=== PATIENT | female | born 1950 ===

== ENCOUNTER 2023-06-15 10:16 | Outpatient (CLI) | payer OTHER | END 2023-06-15 10:28 | disposition home or self-care (01) | LOC: RAD 10:16 | PROVIDERS: ATTEND Orthopaedic Surgery | DX: S60.211A Contusion of right wrist, initial encounter (principal) ==

== ENCOUNTER 2023-06-15 11:15 | Outpatient (CLI) | payer OTHER | END 2023-06-15 11:16 | disposition home or self-care (01) | LOC: LAB 11:15 | PROVIDERS: ATTEND Orthopaedic Surgery | DX: Z22.322 Carrier or suspected carrier of Methicillin resistant Staphylococcus aureus (principal) ==

== ENCOUNTER 2023-06-25 08:22 | Outpatient (CLI) | payer OTHER | END 2023-06-25 08:32 | disposition home or self-care (01) | LOC: RAD 08:22 | PROVIDERS: ATTEND Orthopaedic Surgery | DX: S52.572D Other intraarticular fracture of lower end of left radius, subsequent encounter for closed fracture with routine healing (principal) ==

== ENCOUNTER 2023-08-13 08:11 | Outpatient (CLI) | payer OTHER ==
[2023-08-13 09:53] LABS: BILIRUBIN TOTAL 0.64 mg/dL (0.3-1.2); CALCIUM 9.2 mg/dL (8.5-10.1); CREATININE SERUM 0.84 mg/dL (0.55-1.02); GFR 66.84; GLOBULINA 2.7 G/DL (2.4-3.5); MAGNESIUM 2.1 mg/dL (1.8-2.4); PHOSPHOROUS 3.7 mg/dL (2.5-4.9); POTASSIUM 3.68 mEq/L (3.5-5.1); TOTAL PROTEIN 6.7 gm/dL (6.4-8.2)
== END 2023-08-13 08:12 | disposition home or self-care (01) ==
LOC: LAB 08:11
PROVIDERS: ATTEND Orthopaedic Surgery
DX: M85.9 Disorder of bone density and structure, unspecified (principal); E83.42 Hypomagnesemia; E56.1 Deficiency of vitamin K; E88.89 Other specified metabolic disorders; M81.8 Other osteoporosis without current pathological fracture

== ENCOUNTER 2023-09-24 13:18 | Outpatient (CLI) | payer OTHER ==
[2023-09-24 14:13] LABS: HEMATOCRIT 42.5 % (36.0-45.00); HEMOGLOBIN 14.4 g/dL (12.0-15.00); MEAN CELL VOLUME 90.3 fL (80.00-100.00); MEAN CORPUSCULAR HEMOGLOBIN 30.6 pg (27.00-32.0); MEAN CORPUSCULAR HGB CONC 33.9 g/dl (32.0-36.0); RED CELL DISTRIBUTION WIDTH 14.3 % (11.5-14.5)
[2023-09-24 14:20] LABS: PH,URINE 6.5 (5.0-8.0); URINE APPEARANCE Clear; URINE BILIRRUBIN Negative (NEGATIVE); URINE BLOOD Negative; URINE COLOR Yellow; URINE GLUCOSE Negative (NEGATIVE); URINE LEUKOCYTE Small; URINE NITRATE Negative; URINE PROTEIN Negative (NEGATIVE)
[2023-09-24 14:24] LABS: URINE BACTERIA 600.7 uL (0.0-1933); URINE EPITHELIAL CELLS 40.3 uL (0.0-38.8); URINE RBC 17.3 uL (0.0-20.8); URINE WBC 12.6 uL (0.0-23.2)
[2023-09-24 14:42] LABS: PARTIAL THROMBOPLASTIN TIME 25.6 SECONDS (22.0-34.0); PROTHROMBIN TIME 10.5 SECONDS (9.0-11.5)
[2023-09-24 14:43] LABS: ALBUMIN 4.2 gm/dL (3.4-5.0); BILIRUBIN TOTAL 0.46 mg/dL (0.3-1.2); CALCIUM 9.5 mg/dL (8.5-10.1); CREATININE SERUM 0.95 mg/dL (0.55-1.02); GFR 57.99; GLOBULINA 3.1 G/DL (2.4-3.5); POTASSIUM 4.16 mEq/L (3.5-5.1); TOTAL PROTEIN 7.3 gm/dL (6.4-8.2)
[2023-09-24 14:48] LABS: PLATELET COUNT 141 K/uL (150-450)
== END 2023-09-24 14:18 | disposition home or self-care (01) ==
LOC: LAB 13:18
PROVIDERS: ATTEND Orthopaedic Surgery
DX: D68.8 Other specified coagulation defects (principal); D64.9 Anemia, unspecified; N39.0 Urinary tract infection, site not specified; Z20.822 Contact with and (suspected) exposure to COVID-19; E03.9 Hypothyroidism, unspecified; E55.9 Vitamin D deficiency, unspecified

== ENCOUNTER 2023-10-05 07:22 | Day surgery (SDC) | payer OTHER ==
[~2023-10-05] VITALS: Ht 167.6 cm; Wt 62.1 kg
[~2023-10-05 07:22] MED LIST: LEVOTHYROXINE25 MCG PO; SIMVASTATIN5 MG PO
[2023-10-05] MEDS ORDERED: CEFAZOLIN SODIUM 1,000 MG VIAL ONE (11:03)
[2023-10-05] MEDS ORDERED: VANCOMYCIN HCL 1,000 MG VIAL ONE (11:03)
[2023-10-05] MEDS ORDERED: SUGAMMADEX SODIUM 200 MG/2 ML VIAL IV ONE ×2 (12:10→13:30)
[2023-10-05] MEDS ORDERED: CEFAZOLIN SODIUM 1,000 MG VIAL IV ONE (13:30)
[2023-10-05] MEDS ORDERED: VANCOMYCIN HCL 1,000 MG VIAL IR ONE (13:30)
== END 2023-10-05 16:15 | disposition home or self-care (01) ==
LOC: CIR.AMB 07:22
PROVIDERS: ATTEND Orthopaedic Surgery
DX: M65.832 Other synovitis and tenosynovitis, left forearm (principal); L08.89 Other specified local infections of the skin and subcutaneous tissue; Z20.822 Contact with and (suspected) exposure to COVID-19
CPT/HCPCS: 25405; 20680; 25000; L8699

== ENCOUNTER 2023-10-29 08:18 | Outpatient (CLI) | payer OTHER | END 2023-10-30 08:39 | disposition home or self-care (01) | LOC: RAD 08:18 | PROVIDERS: ATTEND Orthopaedic Surgery | DX: S52.572S Other intraarticular fracture of lower end of left radius, sequela (principal); M25.532 Pain in left wrist ==

== ENCOUNTER → 2024-05-31 07:38 | Outpatient (CLI) | payer OTHER ==
[2024-05-31 08:54] LABS: BILIRUBIN TOTAL 0.57 mg/dL (0.3-1.2); CREATININE SERUM 0.9 mg/dL (0.55-1.02); GFR 61.55; GLOBULINA 2.8 G/DL (2.4-3.5); MAGNESIUM 2.5 mg/dL (1.8-2.4); PHOSPHOROUS 3.4 mg/dL (2.5-4.9); POTASSIUM 4.15 mEq/L (3.5-5.1); TOTAL PROTEIN 6.8 gm/dL (6.4-8.2)
[2024-06-01 13:06] LABS: CALCIUM IONIZED 4.9 mg/dL (4.5-5.6)
== END | disposition home or self-care (01) ==
LOC: LAB 07:38
PROVIDERS: ATTEND Orthopaedic Surgery
DX: E55.9 Vitamin D deficiency, unspecified (principal); M85.9 Disorder of bone density and structure, unspecified; E56.1 Deficiency of vitamin K; E21.3 Hyperparathyroidism, unspecified; E88.89 Other specified metabolic disorders; M81.8 Other osteoporosis without current pathological fracture

== ENCOUNTER 2024-06-13 13:41 | Outpatient (CLI) | payer OTHER | END 2024-06-13 13:42 | disposition home or self-care (01) | LOC: NUCLEAR 13:41 | PROVIDERS: ATTEND Orthopaedic Surgery | DX: M81.0 Age-related osteoporosis without current pathological fracture (principal) ==